=== PATIENT | male | born 1965 | race Hispanic/Latino ===

== ENCOUNTER 2019-06-01 11:07 | Emergency (ER) | payer SELFPAY ==
[2019-06-01] MEDS ORDERED: NORCO 5/325 PO ONE (12:20)
--- NOTE | 2019-06-01 12:28 | Emergency Department Report ---
HPI - General Chief Complaint: Abdominal Pain Time Seen by Provider: 06/01/19 11:50 - HPI HPI: Room 41 The patient is a 54-year-old male presenting with chief complaint of urinary retention. The patient states she's been unable to urinate since last night. The patient states whenever he attempts to a small amount trickles out. Patient denies any previous episodes of same. Patient admits to nausea and vomiting Location: [See above] Duration: [See above] Quality: [See above] Severity: [See above] Timing: [See above] Context: [See above] Modifying factors: [See above] Associated signs and symptoms: [see above] ED Past Medical Hx - Past Medical History Previous Medical History?: No - Surgical History Past Surgical History?: No - Family History Family history: no significant - Social History Smoking Status: Current Every Day Smoker (1/2 pack per day) Substance Use Type: Alcohol - Medications Home Medications: Home Medications Medication Instructions Recorded Confirmed Last Taken Type HYDROcodone/APAP 5-325 [Startex 1 - 2 each PO Q6HR PRN #14 tablet 06/01/19 Unknown Rx 5/325] Ibuprofen [Motrin 800 MG tab] 800 mg PO Q8HR PRN #20 tablet 06/01/19 Unknown Rx Promethazine [Phenergan] 25 mg PO Q6HR PRN #20 tab 06/01/19 Unknown Rx Promethazine [Phenergan] 25 mg CA Q6HR PRN #5 supp.rect 06/01/19 Unknown Rx ED Review of Systems ROS: Stated complaint: DIFFICULTY URINATING Other details as noted in HPI Constitutional: no symptoms reported Eyes: denies: eye pain ENT: denies: throat pain Respiratory: no symptoms reported Cardiovascular: denies: chest pain Endocrine: no symptoms reported Gastrointestinal: abdominal pain, nausea, vomiting Genitourinary: other (urinary retention) Neurological: denies: headache Physical Exam - Physical Exam Vital Signs: Vital Signs 06/01/19 11:12 Temperature 97.3 F L Pulse Rate 69 Respiratory 18 Rate Blood Pressure 173/107 O2 Sat by Pulse 99 Oximetry Physical Exam: GENERAL: The patient is well-developed well-nourished male lying in right l ateral decubitus position. In mild discomfort. [] HEENT: Normocephalic. Atraumatic. Extraocular motions are intact. Patient has moist mucous membranes. NECK: Supple. Trachea midline CHEST/LUNGS: Clear to auscultation. There is no respiratory distress noted. HEART/CARDIOVASCULAR: Regular. There is no tachycardia. There is no gallop rub or murmur. ABDOMEN: Abdomen is soft, with suprapubic tenderness. Patient has normal bowel sounds. There is no abdominal distention. SKIN: There is no rash. There is no edema. There is no diaphoresis. NEURO: The patient is awake, alert, and oriented. The patient is cooperative. The patient has no focal neurologic deficits. The patient has normal speech MUSCULOSKELETAL: There is no evidence of acute injury. ED Course Vital Signs 06/01/19 11:12 Temperature 97.3 F L Pulse Rate 69 Respiratory 18 Rate Blood Pressure 173/107 O2 Sat by Pulse 99 Oximetry ED Medical Decision Making - Lab Data Result diagrams: 06/01/19 13:05 06/01/19 13:05 - Radiology Data Radiology results: report reviewed (CT abdomen and pelvis), image reviewed (CT abdomen and pelvis) [address] [address] Cat Scan Report Signed Patient: ORLY HARRIS MR#: [id number] : 1965 Acct:[id number] Age/Sex: 54 / M ADM Date: 06/01/19 Loc: ED Attending Dr: Ordering Physician: VALENTE MORALES MD Date of Service: 06/01/19 Procedure(s): CT abdomen pelvis w con Accession Number(s): [id number] cc: VALENTE MORALES MD CT abdomen pelvis w con INDICATION: suprapubic pain, oliguria. TECHNIQUE: All CT scans at this location are performed using the following dose modulation technique: Automated exposure control. Helical slices were obtained through the abdomen and pelvis. 100 cc of Omnipaque 300 is administered. COMPARISON: None available. FINDINGS: Abdomen: There is dependent atelectasis in the lung bases. Surface of the liver is nodular raising possibility of cirrhosis. Spleen is upper limits of normal in size measuring 12.5 cm in length. The pancreas, adrenal glands, and small bowel are unremarkable. The left kidney is swollen there is perinephric edema on the left. There is mild left hydroureteronephrosis. There is a calyceal stone in the upper pole the right kidney Pelvis: There is no inflammatory change. There is no abnormal fluid collections. There is no adenopathy. There is a 4 mm stone in the distal left ureter at the ureterovesical junction. On review of bone windows, no acute osseous abnormalities are seen. IMPRESSION: 1. There is a 4 mm stone at the left ureterovesical junction with mild hydroureteronephrosis proximal to it. There is perinephric edema. There is a small calyceal stone in the upper pole the right kidney. The surface of the liver is nodular raising possibility of cirrhosis. Not mentioned above, there is a small hiatal hernia. Signer Name: Christian Martel MD Signed: 06/01/2019 4:36 PM Workstation Name: [id number] Transcribed By: SS Dictated By: Christian Martel MD Electronically Authenticated By: Christian Martel MD Signed Date/Time: 06/01/191635 DD/ 31 TD/TT: - Differential Diagnosis urinary retention, UTI, BPH Critical care attestation.: If time is entered above; I have spent that time in minutes in the direct care of this critically ill patient, excluding procedure time. ED Disposition Clinical Impression: Renal colic Disposition: DC-01 TO HOME OR SELFCARE Is pt being admited?: No Does the pt Need Aspirin: No Condition: Stable Instructions: Renal Colic (ED) Additional Instructions: Return to the emergency department should you develop worsening symptoms, inability to tolerate food or liquids, high fever or any other concerns Prescriptions: Ibuprofen [Motrin 800 MG tab] 800 mg PO Q8HR PRN #20 tablet PRN Reason: Pain, Moderate (4-6) HYDROcodone/APAP 5-325 [Startex 5/325] 1 - 2 each PO Q6HR PRN #14 tablet PRN Reason: Pain Promethazine [Phenergan] 25 mg PO Q6HR PRN #20 tab PRN Reason: Nausea Promethazine [Phenergan] 25 mg CA Q6HR PRN #5 supp.rect PRN Reason: Nausea Referrals: GAURAV WHEATLEY MD [Staff Physician] - 3-5 Days (Dr Wheatley is a urologist. Please follow up with him for further evaluation) Time of Disposition: 17:34
[2019-06-01 13:25] LABS: Basophils % (Auto) 0.2 % (0.0-1.8); Eosinophils % (Auto) 0.1 % (0.0-4.3); Lymphocytes # (Auto) 0.7 K/mm3 (1.2-5.4); Lymphocytes % (Auto) 7.7 % (13.4-35.0); Mean Corpuscular HGB Conc 35 % (32-34); Mean Corpuscular Volume 99 fl (84-94); Monocytes # (Auto) 0.5 K/mm3 (0.0-0.8); Platelet Count 132 K/mm3 (140-440); Red Blood Count 5.35 M/mm3 (3.65-5.03); Red Cell Distribution Width 13.2 % (13.2-15.2)
[2019-06-01 13:36] LABS: Hemoglobin 18.7 gm/dl (11.8-15.2)
[2019-06-01 13:45] LABS: Alanine Aminotransferase 167 units/L (7-56); Albumin 4.1 g/dL (3.9-5); BUN/Creatinine Ratio 17; Blood Urea Nitrogen 17 mg/dL (9-20); Calcium 9.4 mg/dL (8.4-10.2); Hemolysis Index 11
[2019-06-01 14:57] LABS: Bilirubin,Urine NEG (Negative); Blood,Urine LG (Negative); Color,Urine Amber (Yellow)
[2019-06-01 14:58] LABS: Mucus,Urine FEW /HPF; Urobilinogen,Urine < 2.0 mg/dL (<2.0); WBC,Urine < 1.0 /HPF (0.0-6.0)
[2019-06-01] MEDS ORDERED: SUBLIMAZE IV ONE (15:08)
[2019-06-01] MEDS ORDERED: ZOFRAN IV ONE (15:08)
--- NOTE | 2019-06-01 16:40 | Cat Scan Report ---
CT abdomen pelvis w con INDICATION: suprapubic pain, oliguria. TECHNIQUE: All CT scans at this location are performed using the following dose modulation technique: Automated exposure control. Helical slices were obtained through the abdomen and pelvis. 100 cc of Omnipaque 30 0 is administered. COMPARISON: None available. FINDINGS: Abdomen: There is dependent atelectasis in the lung bases. Surface of the liver is nodular raising po ssibility of cirrhosis. Spleen is upper limits of normal in size measuring 12.5 cm in length. The gallo creas, adrenal glands, and small bowel are unremarkable. The left kidney is swollen there is perineph osei edema on the left. There is mild left hydroureteronephrosis. There is a calyceal stone in the upp er pole the right kidney Pelvis: There is no inflammatory change. There is no abnormal fluid collections. There is no adenopat hy. There is a 4 mm stone in the distal left ureter at the ureterovesical junction. On review of bone windows, no acute osseous abnormalities are seen. IMPRESSION: 1. There is a 4 mm stone at the left ureterovesical junction with mild hydroureteronephrosis proximal to it. There is perinephric edema. There is a small calyceal stone in the upper pole the right kidney. The surface of the liver is nodular raising possibility of cirrhosis. Not mentioned above, there is a small hiatal hernia. Signer Name: Christian Martel MD Signed: 06/01/2019 4:36 PM Workstation Name: [id number]
[2019-06-01 18:12] VITALS: BP 170/93
== END 2019-06-01 18:18 | disposition home or self-care (01) ==
LOC: ED 11:07
DX: N23 Unspecified renal colic (principal); F17.200 Nicotine dependence, unspecified, uncomplicated; Z79.899 Other long term (current) drug therapy
CPT/HCPCS: 36415; 74177; 80053; 81001; 83690; 85025; 96374; 96375; 99284; J2405; J3010; Q9967